=== PATIENT | female | born 1970 | race Caucasian/White ===

== ENCOUNTER → 2016-11-28 | Outpatient (CLI) | payer BC ==
[~2016-11-28] VITALS: Ht 167.6 cm; Wt 66.7 kg
[~2016-11-28] MED LIST: DICY10CA13 PO; LIDOCAINE 2% INJ 100 MG/5 ML SDV (FOR ANES.) As Ordered ONE; NAPR500T2 PO; NS 1,000 ML IV SCH; OMEP40CA2 PO; PROPOFOL 500 MG/50 ML VIAL As Ordered ONE
--- NOTE | 2016-11-28 09:31 | ROOR ---
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 Procedure: Pre-Anesthesia Assessment: - The heart rate, respiratory rate, oxygen saturations, blood pressure, adequacy of pulmonary ventilation, and response to care were monitored throughout the procedure. The Endoscope was introduced through the mouth, and advanced to the third part of duodenum. The upper GI endoscopy was accomplished without difficulty. The patient tolerated the procedure well. Findings: The examined esophagus was normal. This was biopsied with a cold forceps for evaluation of eosinophilic esophagitis. The entire examined stomach was normal. Biopsies were taken with a cold forceps for Helicobacter pylori testing. The examined duodenum was normal. Biopsies for histology were taken with a cold forceps for evaluation of celiac disease. Impression: - Normal esophagus. Biopsied. - Normal stomach. Biopsied. - Normal examined duodenum. Biopsied. Recommendation: - Continue present medications. - Await pathology results. - Telephone endoscopist for pathology results in 2 weeks. Neftali Peres MD Neftali PERES MD 11/28/2016 9:31:00 AM This report has been signed electronically. Number of Addenda: 0 Note Initiated On: 11/28/2016 9:14 AM Estimated Blood Loss: Estimated blood loss: none.
[2016-11-28 09:51] VITALS: BP 129/69
== END | disposition home or self-care (01) ==
LOC: M OPP 07:26
PROVIDERS: ATTEND Internal Medicine Gastroenterology
DX: R10.10 Upper abdominal pain, unspecified (principal); K30 Functional dyspepsia; Z78.0 Asymptomatic menopausal state; Z80.8 Family history of malignant neoplasm of other organs or systems

== ENCOUNTER → 2017-12-21 | Outpatient (CLI) | payer BC | LOC: M PLARAD 09:38 | DX: M54.5 Low back pain (principal); M51.37 Other intervertebral disc degeneration, lumbosacral region; G62.9 Polyneuropathy, unspecified | CPT/HCPCS: 72148 ==

== ENCOUNTER → 2017-12-30 | Outpatient (CLI) | payer BC | LOC: M RAD 09:37 | DX: G57.61 Lesion of plantar nerve, right lower limb (principal); G57.62 Lesion of plantar nerve, left lower limb; M25.571 Pain in right ankle and joints of right foot; G62.9 Polyneuropathy, unspecified | CPT/HCPCS: 73721 ==

== ENCOUNTER → 2018-06-28 | Outpatient (REF) | payer BC ==
[2018-06-28 19:01] LABS: APPEARANCE, URINE CLEAR (CLEAR); BACTERIA, URINE AUTO NEGATIVE (NEGATIVE); BILIRUBIN, URINE AUTO NEGATIVE (NEGATIVE); BLOOD, URINE BLOOD NEGATIVE (NEGATIVE); COLOR, URINE STRAW (YELLOW); GLUCOSE, URINE (UA) AUTO NEGATIVE (NEGATIVE); KETONE, URINE AUTO NEGATIVE (NEGATIVE); LEUKOCYTE ESTERASE, URINE AUTO NEGATIVE (NEGATIVE); NITRITE, URINE AUTO NEGATIVE (NEGATIVE); PROTEIN, URINE AUTO NEGATIVE (NEGATIVE); RBC, URINE AUTO 1 /HPF (0-3); SQUAMOUS EPITHELIAL CELL UR AU 0 /HPF (0-6); UROBILINOGEN, URINE AUTO 0.2 mg/dL (0.0-2.0); WBC, URINE AUTO 0 /HPF (0-3)
== END ==
LOC: M LAB REF 16:23
DX: N39.0 Urinary tract infection, site not specified (principal)
CPT/HCPCS: 81001

== ENCOUNTER → 2019-07-15 | Outpatient (CLI) | payer BC ==
[~2019-07-15] MED LIST changes: -LIDOCAINE 2% INJ 100 MG/5 ML SDV (FOR ANES.) As Ordered ONE; +NAPR-885 PO; -NAPR500T2 PO; -NS 1,000 ML IV SCH; -OMEP40CA2 PO; +OMEP40CA97 PO; -PROPOFOL 500 MG/50 ML VIAL As Ordered ONE
== END ==
LOC: M LAB 09:42
PROVIDERS: ATTEND Ophthalmology
DX: M25.551 Pain in right hip (principal)

== ENCOUNTER → 2022-06-04 | Outpatient (CLI) | payer BC ==
[~2022-06-04] MED LIST changes: +OMEP40CA4 PO; -OMEP40CA97 PO; +PROHANCE 279.3MG/ML 15ML VIAL As Ordered ONE
== END ==
LOC: M RAD 14:37
PROVIDERS: ATTEND General Practice
DX: R25.1 Tremor, unspecified (principal)
CPT/HCPCS: 70553; A9576

== ENCOUNTER → 2023-02-19 | Outpatient (CLI) | payer BC ==
[~2023-02-19] MED LIST changes: -PROHANCE 279.3MG/ML 15ML VIAL As Ordered ONE; +PROHANCE 279.3MG/ML 15ML VIAL ONE
== END ==
LOC: M PLAIMG 13:45
DX: M85.571 Aneurysmal bone cyst, right ankle and foot (principal); M76.821 Posterior tibial tendinitis, right leg; M77.42 Metatarsalgia, left foot; M79.672 Pain in left foot; M21.42 Flat foot [pes planus] (acquired), left foot; M21.41 Flat foot [pes planus] (acquired), right foot
CPT/HCPCS: 73720; 73723; A9576

== ENCOUNTER → 2023-09-04 | Outpatient (CLI) | payer BC ==
[~2023-09-04] MED LIST changes: +DICY-61 PO; -DICY10CA13 PO; -PROHANCE 279.3MG/ML 15ML VIAL ONE
[2023-09-04 11:42] LABS: BASO % 0.7 % (0.0-1.0); EOS # 0.3 10^3/uL (0.0-0.5); EOS % 5.4 % (0.0-3.0); HEMATOCRIT 39.7 % (36.0-47.0); LYMPH # 1.7 10^3/uL (1.5-5.0); LYMPH % 29.5 % (24.0-44.0); MEAN CORPUSCULAR HEMOGLOBIN 30.4 pg (27.0-33.0); MEAN CORPUSCULAR HGB CONC 32.7 g/dl (32.0-36.5); MONO # 0.5 10^3/uL (0.0-0.8); NEUTROPHILS # 3.3 10^3/uL (1.5-8.5); NEUTROPHILS % 56.2 % (36.0-66.0); PLATELET COUNT, AUTOMATED 278 10^3/uL (150-450); RED BLOOD COUNT 4.27 10^6/uL (4.00-5.40); WHITE BLOOD COUNT 5.9 10^3/uL (4.0-10.0)
[2023-09-04 12:03] LABS: FOLLICLE STIMULATING HORMONE 75.6 mIU/ML
[2023-09-04 12:04] LABS: ESTRADIOL 34.4 PG/ML
[2023-09-04 12:05] LABS: PROGESTERONE 5.77 NG/ML
[2023-09-05 15:07] LABS: TESTOSTERONE FREE (DIRECT) 0.8 pg/mL (0.0-4.2)
== END ==
LOC: M LAB 09:29
PROVIDERS: ATTEND Family Medicine
DX: N95.1 Menopausal and female climacteric states (principal); R89.1 Abnormal level of hormones in specimens from other organs, systems and tissues; E34.9 Endocrine disorder, unspecified; E07.89 Other specified disorders of thyroid